=== PATIENT | male | born 1980 | race Caucasian/White ===

== ENCOUNTER 2017-07-15 19:49 | Emergency (ER) | payer BC, OTHER ==
[~2017-07-15] VITALS: Ht 182.9 cm; Wt 90.7 kg
--- NOTE | ~2017-07-15 | EKG ---
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
[2017-07-15 20:16] LABS: ABSOLUTE NEUTROPHILS 4.5 thou/uL (1.4-8.2); BASOPHILS 0.9 % (0.0-2.0); EOSINOPHILS 5.8 % (0.0-3.0); HEMATOCRIT 41.4 % (42.0-52.0); HEMOGLOBIN 14.8 gm/dL (14.0-18.0); LYMPHOCYTES 26.9 % (24.0-44.0); MCH 33.5 pg (26.0-34.0); MCHC 35.8 g/dL (28.0-37.0); MCV 93.6 fL (80.0-100.0); MONOCYTES 5.9 % (1.0-8.0); PLATELET COUNT 148 thou/uL (150-400); POLYS 60.5 % (36.0-66.0); RBC 4.43 mil/uL (4.50-6.00); RDW 12.3 % (10.5-14.5); WBC 7.4 thou/uL (4.0-11.0)
[2017-07-15 20:17] LABS: MANUAL DIFF NO
[2017-07-15 20:26] LABS: ANION GAP 8 mmol/L (7-16); BUN 14 mg/dL (7-18); CALCIUM 9.5 mg/dL (8.5-10.1); CHLORIDE 102 mmol/L (98-107); CO2 24 mmol/L (21-32); CREATININE 1.2 mg/dL (0.7-1.3); GLUCOSE 203 mg/dL (74-106); POTASSIUM 3.5 mmol/L (3.5-5.1); SODIUM 134 mmol/L (136-145)
[2017-07-15 20:35] LABS: ALBUMIN 4.3 g/dL (3.4-5.0); ALKALINE PHOSPHATASE 85 U/L (46-116); SGOT 45 U/L (15-37); SGPT 82 U/L (30-65); TOTAL BILIRUBIN 0.5 mg/dL (<0.1-1.0); TOTAL PROTEIN 8.3 g/dL (6.4-8.2); TROPONIN-I < 0.04 ng/mL (<0.04-0.07)
[2017-07-15] MEDS ORDERED: CARAFATE1 GM PO (22:36)
[2017-07-15 22:39] VITALS: BP 137/100
== END 2017-07-15 22:40 | disposition home or self-care (01) ==
LOC: ER 19:49
PROVIDERS: Physician Assistant
DX: R07.89 Other chest pain (principal); R12 Heartburn; I10 Essential (primary) hypertension; K21.9 Gastro-esophageal reflux disease without esophagitis; F41.9 Anxiety disorder, unspecified; F10.99 Alcohol use, unspecified with unspecified alcohol-induced disorder; Z98.890 Other specified postprocedural states; Z87.891 Personal history of nicotine dependence

== ENCOUNTER 2019-01-28 18:09 | Emergency (ER) | payer BC, OTHER ==
[~2019-01-28] VITALS: Ht 182.9 cm; Wt 88.5 kg
[~2019-01-28 18:09] MED LIST: CARAFATE1 GM PO
[2019-01-28] MEDS ORDERED: LISINOPRIL20 MG PO (18:18)
[2019-01-28] MEDS ORDERED: LEVOXYL112 MCG PO (18:29)
[2019-01-28] MEDS ORDERED: OMEPRAZOLE 20 M20 M1 PO (18:29)
[2019-01-28] MEDS ORDERED: ATORVASTATIN CA40 MG PO (18:29)
[2019-01-28 19:12] LABS: ABSOLUTE NEUTROPHILS 4.3 thou/uL (1.4-8.2); BASOPHILS 0.7 % (0.0-2.0); EOSINOPHILS 6.6 % (0.0-3.0); HEMATOCRIT 40.7 % (42.0-52.0); HEMOGLOBIN 14.4 gm/dL (14.0-18.0); LYMPHOCYTES 26.5 % (24.0-44.0); MCH 32.2 pg (26.0-34.0); MCHC 35.3 g/dL (28.0-37.0); MCV 91.4 fL (80.0-100.0); MONOCYTES 4.6 % (1.0-8.0); PLATELET COUNT 173 thou/uL (150-400); POLYS 61.6 % (36.0-66.0); RBC 4.46 mil/uL (4.50-6.00); RDW 11.7 % (10.5-14.5)
[2019-01-28 19:21] LABS: ANION GAP 10 mmol/L (7-16); BUN 12 mg/dL (7-18); CALCIUM 9.5 mg/dL (8.5-10.1); CHLORIDE 93 mmol/L (98-107); CO2 28 mmol/L (21-32); GLUCOSE 111 mg/dL (74-106); SODIUM 131 mmol/L (136-145)
[2019-01-28 19:32] LABS: DIRECT BILIRUBIN 0.2 mg/dL (<0.1-0.3); LIPASE 105 U/L (73-393); SGOT 28 U/L (15-37); SGPT 50 U/L (30-65); TOTAL BILIRUBIN 0.6 mg/dL (<0.1-1.0); TROPONIN-I <0.06 ng/mL (<0.06)
[2019-01-28 20:49] VITALS: BP 155/107
--- NOTE | 2019-01-29 08:21 | EKG ---
[place] [address] [address] [facility] [place] [address] ELECTROCARDIOGRAM REPORT Name: AARON BADILLO Room #: [facility] [id number] ������������������ Admission: 01/28/19 ������������������ Attend Phys: Discharge: 01/28/19 ������������������ Date of : 82 Report #: [id number] ����������������������������������������������������������������� [id number] THIS REPORT FOR: //name// [facility] ED Test Date: 2019-01-28 Test Time: 18:24:13 Pat Name: AARON BADILLO Department: Room: Gender: Corporate Safety Manager: GIANNA : 1980 Requested By: Dee Dee Harley Order Number: [id number] MD: Orlando David Measurements Intervals [place] Rate: 80 P: -5 OR: 166 QRS: -10 QRSD: 101 T: 40 QT: 357 QTc: 412 Interpretive Statements Sinus rhythm ST elev, probable normal early repol pattern Compared to ECG 07/15/2017 19:48:54 ST (T wave) deviation now present Electronically Signed On 01-29-2019 8:20:50 CDT by Orlando David [email or web address] ��������������������������������������������� <ELECTRONICALLY SIGNED> ���������������������������������������� By: Orlando David MD ��������������������������������������������� [id number] 23 23 Orlando David MD /ELIA
== END 2019-01-28 20:49 | disposition home or self-care (01) ==
LOC: ER 18:09
PROVIDERS: Emergency Medicine
DX: R07.89 Other chest pain (principal); I10 Essential (primary) hypertension; E87.6 Hypokalemia; F41.9 Anxiety disorder, unspecified; K21.9 Gastro-esophageal reflux disease without esophagitis; Z87.891 Personal history of nicotine dependence